=== PATIENT | male | born 1950 | race Caucasian/White ===

== ENCOUNTER → 2016-10-07 | Outpatient (REF) | payer OTHER ==
[2016-10-07 10:30] LABS: MEAN CORPUSCULAR HEMOGLOBIN 29.4 pg (27.0-33.0); MEAN CORPUSCULAR HGB CONC 33.5 g/dl (32.0-36.5); MEAN CORPUSCULAR VOLUME 87.8 fl (80.0-96.0); RED CELL DISTRIBUTION WIDTH 13.7 % (11.5-14.5); WHITE BLOOD COUNT 5.9 K/mm3 (4.0-10.0)
[2016-10-07 11:11] LABS: ALBUMIN 3.5 GM/DL (3.2-5.2); ALKALINE PHOSPHATASE 84 U/L (45-117); ALT/SGPT 13 U/L (12-78); ANION GAP 9 MEQ/L (8-16); AST/SGOT 16 U/L (15-37); BILIRUBIN,TOTAL 0.5 MG/DL (0.2-1.0); BLOOD UREA NITROGEN 18 MG/DL (7-18); CALCIUM LEVEL 8.6 MG/DL (8.8-10.2); CARBON DIOXIDE LEVEL 30 MEQ/L (21-32); CHLORIDE LEVEL 101 MEQ/L (98-107); CHOLESTEROL LEVEL 188 MG/DL (<200); CREATININE FOR GFR 1.16 MG/DL (0.70-1.30); GLOMERULAR FILTRATION RATE > 60.0 (>49); GLUCOSE, FASTING 93 MG/DL (80-110); POTASSIUM SERUM 3.8 MEQ/L (3.5-5.1); SODIUM LEVEL 140 MEQ/L (136-145); TRIGLYCERIDES LEVEL 76 MG/DL (<150)
== END ==
LOC: M SFHCPLAZ 08:52
PROVIDERS: ATTEND Family Medicine
DX: G47.33 Obstructive sleep apnea (adult) (pediatric) (principal); I10 Essential (primary) hypertension; E78.5 Hyperlipidemia, unspecified; Z68.43 Body mass index [BMI] 50.0-59.9, adult

== ENCOUNTER → 2017-04-01 | Outpatient (REF) | payer OTHER | LOC: M SFHCPLAZ 11:54 | PROVIDERS: ATTEND Family Medicine | DX: Z11.59 Encounter for screening for other viral diseases (principal) ==

== ENCOUNTER → 2017-05-14 | Outpatient (CLI) | payer BC, OTHER ==
--- NOTE | 2017-05-14 18:35 | REP ---
HISTORY: Dyspnea. COMPARISON: 04/08/2012 FINDINGS: The superior mediastinal structures are midline. The cardiac silhouette is unremarkable in size, shape and position. The diaphragmatic surfaces of the lungs are regular and the costophrenic angles are clear. The pulmonary banks are clear. The imaged osseous structures are intact. IMPRESSION: There is no acute cardiopulmonary disease. No change from prior exam. Signed by Xiang Almonte DO 05/17/2017 04:41 P
== END ==
LOC: M WUC 13:58
PROVIDERS: ATTEND Nurse Practitioner Adult Health
DX: R06.02 Shortness of breath (principal)

== ENCOUNTER → 2018-02-21 | Outpatient (REF) | payer MEDICARE, OTHER ==
[2018-02-21 15:46] LABS: HEMATOCRIT 38.6 % (42.0-52.0); HEMOGLOBIN 12.7 g/dl (13.5-17.5); MEAN CORPUSCULAR HEMOGLOBIN 29.5 pg (27.0-33.0); MEAN CORPUSCULAR HGB CONC 32.9 g/dl (32.0-36.5); MEAN CORPUSCULAR VOLUME 89.6 fl (80.0-96.0); PLATELET COUNT, AUTOMATED 204 10^3/uL (150-450); RED BLOOD COUNT 4.31 10^6/uL (4.30-6.10); RED CELL DISTRIBUTION WIDTH 13.6 % (11.5-14.5); WHITE BLOOD COUNT 6.5 10^3/uL (4.0-10.0)
[2018-02-21 16:20] LABS: ALBUMIN 3.7 GM/DL (3.2-5.2); ALBUMIN/GLOBULIN RATIO 1.19 (1.00-1.93); ALKALINE PHOSPHATASE 79 U/L (45-117); ALT/SGPT 21 U/L (12-78); ANION GAP 6 MEQ/L (8-16); AST/SGOT 14 U/L (7-37); BILIRUBIN,TOTAL 0.5 MG/DL (0.2-1.0); BLOOD UREA NITROGEN 10 MG/DL (7-18); CALCIUM LEVEL 8.6 MG/DL (8.8-10.2); CARBON DIOXIDE LEVEL 30 MEQ/L (21-32); CHLORIDE LEVEL 106 MEQ/L (98-107); CHOLESTEROL LEVEL 185 MG/DL (<200); CREATININE FOR GFR 0.91 MG/DL (0.70-1.30); GLOMERULAR FILTRATION RATE > 60.0 (>49); GLUCOSE, FASTING 95 MG/DL (70-100); HDL CHOLESTEROL 50 MG/DL (>40); LDL CHOLESTEROL 118.6 MG/DL (<100); NON-HDL-C 135 MG/DL; POTASSIUM SERUM 4.3 MEQ/L (3.5-5.1); SODIUM LEVEL 142 MEQ/L (136-145); TOTAL PROTEIN 6.8 GM/DL (6.4-8.2); TRIGLYCERIDES LEVEL 82 MG/DL (<150)
== END ==
LOC: M SFHCPLAZ 12:06
DX: G47.33 Obstructive sleep apnea (adult) (pediatric) (principal); E78.5 Hyperlipidemia, unspecified; I10 Essential (primary) hypertension; Z68.42 Body mass index [BMI] 45.0-49.9, adult
CPT/HCPCS: 84443

== ENCOUNTER → 2018-07-14 | Outpatient (CLI) | payer MEDICARE, BC, OTHER | LOC: M RAD 07:42 | DX: Z13.6 Encounter for screening for cardiovascular disorders (principal) | CPT/HCPCS: 76775 ==

== ENCOUNTER → 2018-09-13 | Outpatient (CLI) | payer MEDICARE, BC, OTHER ==
--- NOTE | 2018-09-13 12:40 | REP ---
MRI THORACIC SPINE WITHOUT CONTRAST: HISTORY: Back spasms. Comparison study is from January 24, 2008. TECHNIQUE: Sagittal and axial T1- and T2-weighted scans are acquired in the usual fashion with and without fat saturation. Sequences include spin echo, turbo spin-echo, and STIR imaging sequences. MRI FINDINGS: Benign hemangiomas are again noted at the T1, T12, and L1 levels. These are unchanged. Cortical and medullary bone signal intensity are otherwise normal. Vertebral body heights are preserved. Alignment is normal. There is minimal disc space narrowing at T5-6, T7-8, T8-9, and at T10-T11 consistent with mild degenerative disc disease changes at these levels. Thoracic cord is normal in coarse, caliber and signal intensity on T1- and T2-weighted scans. There is no evidence of thoracic cord compression. No neural foraminal lesion is appreciated. There is a tiny right central disc protrusion at T8-9 without cord compression. This is much smaller than it was on the 2007 prior study. No other significant thoracic disc herniation is appreciated. Pedicles and posterior elements are intact. No paraspinal fluid collection is seen. IMPRESSION: Minimal degenerative disc changes in the thoracic spine. Tiny T8-9 thoracic disc herniation much improved from January 24, 2008. No other thoracic disc herniation seen. Electronically Signed by Damian Maldonado MD 09/13/2018 01:25 P
== END ==
LOC: M RAD 10:48
PROVIDERS: ATTEND Obstetrics & Gynecology
DX: M62.830 Muscle spasm of back (principal); D18.09 Hemangioma of other sites; M51.24 Other intervertebral disc displacement, thoracic region

== ENCOUNTER → 2018-12-09 | Outpatient (CLI) | payer MEDICARE, OTHER ==
--- NOTE | 2018-12-26 01:01 | ECWPNPC ---
PATIENT NAME: BRITNEY DIANE : 1950 GENDER: MALE VISIT DATE: 12/09/2018 DISCHARGE DATE: 12/09/18 1555 VISIT LOCKED DATE TIME: PHYSICIAN: CHIN VIVAR MD RESOURCE: CHIN VIVAR MD REASON FOR APPOINTMENT 1. SPASM OF THORACIC BACK HISTORY OF PRESENT ILLNESS PAIN SCREENING: PATIENT HAS A COMPLAINT OF ACUTE OR CHRONIC PAIN :YES 68 YEAR OLD MALE PATIENT WITH A HISTORY OF CHRONIC THORACIC PAIN. THE PATIENT DESCRIBES THE PAIN INTERMITTENT, SHARP, TENDER, SORE, AND SHOOTING WITH A PAIN SCORE OF 6-10/10 DEPENDING ON PHYSICAL ACTIVITY. THE PATIENT SAYS THE PAIN IS MAINLY OVER THE RIGHT THORACIC AREA. THE PATIENT SAYS HE RECEIVED A TRIGGER POINT INJECTION PREVIOUSLY DONE AT ANOTHER FACILITY, WHICH RESULTED IN GOOD PAIN RELIEF. THE PATIENT SAYS THE PAIN HAS SINCE RETURNED. THE PATIENT STATES THE PAIN IS WORSE AT NIGHT AND IS CAUSING SLEEPING DIFFICULTIES FOR HIM. PATIENT DENIES UNEXPLAINABLE WEIGHT LOSS, FEVER, CHILLS, NEW CHANGES ON HIS URINARY OR BOWEL CONTROL. FALL RISK SCREENING: SCREENING :NO FALLS REPORTED IN THE LAST YEAR CURRENT MEDICATIONS TAKING LEXAPRO 20 MG TABLET 1 TABLET ORALLY ONCE A DAY KLEVER, NOTES: SHELBY TAKING CPAP AT BEDTIME _ , NOTES: AT BEDTIME TAKING LAMICTAL 100 MG TABLET 1 TAB(S) ORALLY DAILY TAKING PROAIR HFA 108 (90 BASE) MCG/ACT AEROSOL SOLUTION 2 PUFFS NEEDED INHALATION EVERY 4 HRS TAKING TORSEMIDE 20 MG TABLET 1 TABLET ORALLY ONCE A DAY NEEDED TAKING SPIRONOLACTONE 25 MG TABLET 1 TABLET ORALLY DAILY NEEDED TAKING FLONASE ALLERGY RELIEF 50 MCG/ACT SUSPENSION 1 SPRAY IN EACH NOSTRIL NASALLY ONCE A DAY TAKING ALPRAZOLAM 0.5 MG TABLET 1 TABLET ORALLY THREE TIMES DAILY NEEDED TAKING RABEPRAZOLE SODIUM 20 MG TABLET DELAYED RELEASE 1 TABLET ORALLY ONCE A DAY TAKING KLONOPIN 0.5 MG TABLET 1 TABLET AT BEDTIME NEEDED ORALLY ONCE A DAY NOT-TAKING ACIPHEX 20 MG TABLET DELAYED RELEASE 1 TABLETS ORALLY ONCE A DAY NEEDED NOT-TAKING TIZANIDINE HCL 6 MG CAPSULE 1 CAPSULE NEEDED ORALLY THREE TIMES A DAY NOT-TAKING PERCOCET 5-325 MG TABLET 1 TABLET NEEDED ORALLY EVERY 6 HRS, MDD 4 MEDICATION LIST REVIEWED AND RECONCILED WITH THE PATIENT PAST MEDICAL HISTORY DAYLIN - [place] WITH CPAP - PULM; NOC OX 1/14 SAT >90% 100% OF TIME. COR PULMONALE/RT CHF- ANTECOL CANNY; ECHO CANNY- 06/05/13, GRADE I DD/EF 65%/MOD PULM HTN HTN, GOAL BP 130/80 PER AHA/ACC GUIDELINES ASCVD 10-YEAR RISK IS 13.7% IN 06/2018 DEPRESSION/ANGER ISSUES. PREVIOUSLY SAW DR RYAN. CONTROLLED 3 YEARS ON THIS REGIMEN. GERD HISTORY OF THORACIC/LUMBAR HNP(COMP CLAIM) NO RECENT ISSUES DIVERTICULITIS KIDNEY STONES HISTORY OF HIGH CHOLESTEROL ANXIETY ETOH ABUSE ALLERGIES PENICILLIN (FOR ALLERGIES USE ONLY): DOESN'T REMEMBER - ALLERGY TETANUS-DIPHTHERIA TOXOIDS TD: ARM SWELLED (GAVE A PILL BEFORE AND SHOT WAS OK) - ALLERGY TETRACYCLINE HCL: STATES IMMUNITY SURGICAL HISTORY EYE SURGERY CHILD T&A CHILD APPENDECTOMY 2002 LEFT KNEE TORN MENISCUS 06/2009 EGD/COLO DR GONSALVES. 2009 ALL UPPER TEETH EXTRACTED 2014 EDG/COLONOSCOPY - [facility], RECOMMENDED REPEAT OF EGD IN 3 YEARS AND COLONOSCOPY IN 5 YEARS 08/2016 FAMILY HISTORY FATHER: 57 YRS, OF LUNG CA, DIAGNOSED WITH CANCER MOTHER: 91 YRS, COMPLICATIONS OF ALZHEIMER, OTHER SIBLINGS: BROTHER (1) - IS S/P SPLENECTOMY AND IS NOT HAVING PROBLEMS AFTER THIS. HE HAS ALSO HAD A PARTIAL COLECTOMY AFTER DIVERTICULAR FLARES. DAUGHTER(S): DAUGHTERS (3) - H/O ALLERGIES, 1 WITH MIGRAINE HEADACHES PATERNAL GRAND MOTHER: LUNG CANCER MATERNAL GRAND MOTHER: ESOPHAGEAL CANCER PATERNAL AUNT: BRAIN CANCER, STERNUM CANCER 1 BROTHER(S) . 3DAUGHTER(S) - HEALTHY. FATHER - LUNG CANCERMOTHER - ALZHEIMER'S; DUE TO PNEUMONIABROTHER LIVES IN [facility], H\/O SPLENECTOMY\/COLOSTOMY. SOCIAL HISTORY GENERAL: TOBACCO USE ARE YOU A:FORMER SMOKER HOW LONG HAS IT BEEN SINCE YOU LAST SMOKED?> 10 YEARS QUIT IN 1987; HAD ACRUED A 30 PACK YEAR HX BY THEN HIV / HEP-C SCREENING HIV TEST OFFERED TO PATIENT:YES TEST ACCEPTED:NO HEP-C TEST OFFERED TO PATIENT:YES REASON:PATIENT DECLINED TEST ACCEPTED:NO REASON:PATIENT DECLINED HOUSING: LIVES ALONE. EDUCATION 1 SEMESTER COLLEGE. LANGUAGE LANGUAGES SPOKEN:[place] DOMESTIC VIOLENCE NONE. BMI CARE GOAL FOLLOW-UP ABOVE NORMAL BMI FOLLOW-UPDIETARY MANAGEMENT EDUCATION, GUIDANCE, AND COUNSELING RECREATIONAL DRUG USE MARIJUANA EARLY 20'S ONLY, NONE CURRENTLY. EXERCISE: WALKS, DAILY, MOST DAYS. LEARNING BARRIERS / SPECIAL NEEDS CHANGE FROM LAST VISIT?NO BARRIERS TO LEARNING?NO HEARING IMPAIRED?NO VISION IMPAIRED?YES :CORRECTIVE LENSES BIFOCALS COGNITIVELY IMPAIRED?NO READINESS TO LEARN?YES LEARNING PREFERENCES?NO LEARNING CAPABILITIES PRESENT?YES EMOTIONAL BARRIERS?NO SPECIAL DEVICES?NO CONTINUOUS MINING OPERATOR NEEDED?NO PAIN CLINIC PFS, CLERGY, PUBLIC HEALTH REFERRALS HAS THE PATIENT BEEN EDUCATED REGARDING HIS/HER PLAN OF CARE?YES HAS THE PATIENT BEEN EDUCATED REGARDING PAIN, THE RISK FOR PAIN, THE IMPORTANCE OF EFFECTIVE PAIN MANAGEMENT, AND THE PAIN ASSESSMENT PROCESS?YES LATEX QUESTIONNAIRE LATEX ALLERGY : HAVE YOU EVER DEVELOPED ANY TYPE OF REACTION AFTER HANDLING LATEX PRODUCTS SUCH RUBBER GLOVES, CONDOMS, DIAPHRAGMS, BALLOONS, SOCKS, OR UNDERWEAR?NO LATEX ALLERGY : HAVE YOU EVER DEVELOPED ANY TYPE OF REACTION DURING OR AFTER DENTAL APPOINTMENT, VAGINAL/RECTAL EXAMINATION, SURGICAL PROCEDURE, OR ANY OTHER EXPOSURE?NO LATEX RISK : HAVE YOU EVER HAD ANY DIFFICULTY BREATHING OR HIVES AFTER EATING OR HANDLING ANY FRUITS, OR VEGETABLES; SUCH KIWI, BANANAS, STONE FRUITS, OR CHESTNUTSNO LATEX RISK : DO YOU HAVE A PREVIOUS PERSONAL HISTORY OF MORE THAN NINE SURGERIES, SPINA BIFIDA, OR REPEATED CATHERTIZATIONS? NO LATEX RISK : ARE YOU FREQUENTLY EXPOSED TO LATEX PRODUCTS IN YOUR OCCUPATION?NO DATE ASKED : 12/09/2018 CAFFEINE >5/DAY. ADVANCE DIRECTIVE ADVANCE DIRECTIVE DISCUSSED WITH PATIENT:YES HCP - ALETHA (DAUGHTER) JEW NO MU-ISM BELIEFS THAT WOULD IMPACT HEALTH CARE. MARITAL STATUS: . ALCOHOL SCREENING DID YOU HAVE A DRINK CONTAINING ALCOHOL IN THE PAST YEAR?YES HOW OFTEN DID YOU HAVE SIX OR MORE DRINKS ON ONE OCCASION IN THE PAST YEAR?MONTHLY (2 POINTS) HOW MANY DRINKS DID YOU HAVE ON A TYPICAL DAY WHEN YOU WERE DRINKING IN THE PAST YEAR?5 OR 6 (2 POINTS) HOW OFTEN DID YOU HAVE A DRINK CONTAINING ALCOHOL IN THE PAST YEAR?TWO TO THREE TIMES PER WEEK (3 POINTS) POINTS7 INTERPRETATIONPOSITIVE OCCUPATION: [employer]; RETIRED FROM [employer]/ [employer]. SEXUAL HX HAD SEX IN THE LAST 12 MONTHS (VAGINAL, ORAL, OR ANAL)?NO HAVE YOU EVER HAD AN STD?YES HERPES?YES WANTS TO DONATE BODY TO SCIENCE. HE IS AN ALCOHOLIC IN [place], ATTENDING AA MEETINGS.REVIEWED WITH PATIENT 12/09/18 1410 JS. HOSPITALIZATION/MAJOR DIAGNOSTIC PROCEDURE SURGERY RELATED REVIEW OF SYSTEMS REVIEWED BY: PROVIDER: CHIN VIVAR MD . CONSTITUTIONAL: ANY CHANGE IN YOUR MEDICAL CONDITION? YES, STATES INTENSE PAIN, SPASM, AND BURNING IN 3 SPECIFIC SPOTS - UNDER RIGHT RIB CAGE, RIGHT SIDE, AND RIGHT THORACIC BACK . CHILLS NO . FEVER NO . INFECTION: DO YOU HAVE NEW INFECTIONS? NO . DO YOU HAVE HISTORY OF MRSA? NO . MUSCULOSKELETAL: ANY NEW PATTERNS OF PAIN OR NUMBNESS? NO . SYTEMIC LUPUS NO . GASTROENTEROLOGY: ANY NEW CHANGE IN BOWEL CONTROL? NO . BARRETTS ESOPHAGUS NO . CIRRHOSIS NO . HEPATITIS NO . LIVER FAILURE NO . ACID REFLUX YES . UNEXPLAINED WEIGHT LOSS NO . GENITOURINARY: ANY NEW CHANGE IN BLADDER CONTROL? NO . IS THERE A CHANCE YOU COULD BE ? NO . HEMATOLOGY/LYMPH: DO YOU TAKE ANY BLOOD THINNERS? (FOR EXAMPLE- COUMADIN, PLAVIX, AGGRENOX, PLATEL, PRADAXA, OR XARELTO) NO . WHEN WAS YOUR LAST DOSE? DATE: TIME: . LOW PLATELET COUNT NO . SICKLE CELL DISEASE NO . VON WILLIEBRANDS NO . FACTOR V LEIDEN NO . THALLASEMIA NO . ANEMIA NO . EASY BRUISING NO . NEUROLOGY: HAVE YOU FALLEN IN THE PAST 12 MONTHS? NO . ANY NEW EXTREMITY NUMBNESS OR WEAKNESS? NO . HEAD INJURY NO . DEMENTIA NO . CEREBRAL PALSY NO . MULTIPLE SCLEROSIS NO . DIZZINESS NO . HEADACHE NO . STROKES NO . VERTIGO NO . CARDIOLOGY: DO YOU HAVE A PACEMAKER OR DEFIBRILLATOR? NO . ANGINA NO . HEART ATTACK NO . HEART SURGERY NO . CONGESTIVE HEART FAILURE/FLUID OVERLOAD YES, PATIENT STATES HE DOESN'T AGREE WITH THAT DIAGNOSIS . CHEST PAIN OCCASIONAL, STATES HE HASN'T HAD THEM IN A LONG TIME. FOLLOWS WITH DR. CORTES, HAD PVC'S AT ONE TIME . HIGH BLOOD PRESSURE NO . IRREGULAR HEART BEAT NO . RESPIRATORY: HAVE YOU BEEN SICK IN THE PAST WEEK? NO . FEVER NO . FLU LIKE SYMPTOMS? NO . CPAP YES . BYPAP NO . ASTHMA NO . EMPHYSEMA NO . CHRONIC LUNG DISEASES NO . SHORTNESS OF BREATH ON EXERTION NO . COUGH NO . SNORING YES, IF NOT WEARING CPAP . INTEGUMENTARY: DO YOU HAVE ANY RASHES OR OPEN SORES? NO . ALLERGIC/IMMUNO: ARE YOU ALLERGIC TO IV DYE? NO . ANY NEW ALLERGIES? NO . PSYCHIATRIC: DO YOU HAVE THOUGHTS OF HURTING YOURSELF OR SOMEONE ELSE? NO . ARE YOU ABUSED, NEGLECTED, OR IN AN UNSAFE ENVIRONMENT? NO . ENDOCRINOLOGY: ARE YOU DIABETIC? NO . THYROID DISORDER NO . OTHER: DO YOU NEED ANY PRESCRIPTIONS? NO . IF YES, PLEASE LIST: ____ . ANY NEW PROBLEMS WITH YOUR MEDICATIONS? NO . WHEN DID YOU LAST EAT? ____ . WHEN DID YOU LAST DRINK? ____ . WHAT DID YOU LAST DRINK? ____ . NAME OF PERSON DRIVING YOU HOME? ____ . DO YOU HAVE ANY OTHER QUESTIONS OR CONCERNS NO . VITAL SIGNS WT 349. LBS, HT 69 IN, BMI 51.53 INDEX, BP 193/86 MM HG, REPEAT BP 142/80 MANUAL, HR 85 /MIN, RR 18 /MIN, TEMP 98.0 F, OXYGEN SAT % 94%, SAFE IN ENV? (Y/N) YES, NA INITIALS CA 13:36, REVIEWED BY: JS. EXAMINATION GENERAL EXAMINATION: PATIENT IS ALERT O X 3 AND COOPERATIVE. LUNGS CLEAR, TO AUSCULTATION. HEART: NO MURMURS OR GALLOPS; FACIAL CRANIAL NERVES ARE GROSSLY NORMAL. GOOD SYMMETRY OF FACIAL MUSCLE MOVEMENT. NORMAL VISUAL VÁZQUEZ. PRESENCE OF BANDS OF TISSUE AND TRIGGER POINTS WITH RESTRICTION OF MOVEMENT OF THE BACK. MRI OF THE THORACIC SPINE DONE ON 09/13/2018 SHOWS BULGING DISCS AND MINIMAL DISC NARROWING AT MULTIPLE LEVELS. 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 DIANE' PAIN MANAGEMENT CASE. DUE TO THE TRIGGER POINTS, BANDS OF TISSUE, AND RESTRICTION OF MOVEMENT, I WOULD LIKE TO MOVE FORWARD WITH A TRIGGER POINT INJECTION AT THIS TIME. WE DISCUSSED THE BENEFITS, RISKS, AND ALTERNATIVES OF THE INJECTION AND THE PATIENT WOULD LIKE TO PROCEED. THE PATIENT WILL CONSIDER A NEW MRI WITH MARKERS OF THE PAIN LOCATIONS. I BELIEVE THE PAIN IS MUSCULOSKELETAL THERE SEEMS TO BE NO OTHER INDICATORS FOR WHY THE PAIN IS MANIFESTING. I PRESCRIBED TIZANIDINE FOR THE PATIENT TO TAKE AT NIGHT TO HELP WITH SLEEPING. THE PATIENT WILL FOLLOW UP IN 3 WEEKS AFTER THE INJECTION. INSTRUCTIONS WERE GIVEN, QUESTIONS WERE ANSWERED, PATIENT REPORTS UNDERSTANDING AND AGREES WITH THE PLAN. ITREV, DOCUMENTED THE ABOVE INFORMATION ACTING A SCRIBE FOR DR. VIVAR. I HAVE REVIEWED THE ABOVE DOCUMENT, WRITTEN BY TREV GARSIA SCRIBTyree AND I VERIFY THAT IT IS ACCURATE. DEAR DR. ARTHUR PURDY MD: THANK YOU FOR YOUR KIND REFERRAL OF BRITNEY DIANE. IF YOU WANT TO DISCUSS HIS CASE WITH ME PLEASE CALL ME AT THE PAIN CENTER AT [phone]. SINCERELY, CHIN VIVAR MD PAIN MEDICINE . OTHERS NOTES: TRIGGER POINT INJECTION: YOUR EXPERIENCE MATERIAL WAS PRINTED,TRIGGER POINT INJECTION MATERIAL WAS PRINTED. PROCEDURE CODES FA211 ESTABILISHED PATIENT [facility] FACILITY CHARGE G8427 CURRENT MEDS W/DOSAGES DOCUMENTED G8730 PAIN ASSESS POS TOOL F/U PLAN DOC DISPOSITION & COMMUNICATION FOLLOW UP 3 WEEKS ELECTRONICALLY SIGNED BY CHIN VIVAR MD, MD ON 12/25/2018 AT 05:36 PM EDT DISCLAIMER : THIS IS A VISIT SUMMARY EXTRACTED FROM THE [employer] CHART. IT IS NOT A COPY OF THE [employer] PROGRESS NOTE. CHEYANNE
== END ==
LOC: M PAIN 13:00
PROVIDERS: ATTEND Anesthesiology
DX: M79.18 Myalgia, other site (principal); G89.29 Other chronic pain; M51.14 Intervertebral disc disorders with radiculopathy, thoracic region; I10 Essential (primary) hypertension; G47.33 Obstructive sleep apnea (adult) (pediatric); E66.01 Morbid (severe) obesity due to excess calories; Z68.43 Body mass index [BMI] 50.0-59.9, adult; Z79.899 Other long term (current) drug therapy; Z88.0 Allergy status to penicillin; Z88.1 Allergy status to other antibiotic agents; Z88.7 Allergy status to serum and vaccine; Z87.891 Personal history of nicotine dependence; Z86.59 Personal history of other mental and behavioral disorders

== ENCOUNTER → 2019-01-03 | Outpatient (CLI) | payer MEDICARE, OTHER ==
[~2019-01-03] MED LIST: BUPIVACAINE HCL 0.25% 10 ML VIAL As Ordered ONE; BUPIVACAINE HCL 0.25% 30 ML VIAL As Ordered ONE; TRIAMCINOLONE ACETONIDE SUSP 40 MG/ML VIAL (J3301) As Ordered ONE
--- NOTE | 2019-01-13 03:30 | ECWPNPC ---
PATIENT NAME: BRITNEY DIANE : 1950 GENDER: MALE VISIT DATE: 01/03/2019 DISCHARGE DATE: 01/03/19 1559 VISIT LOCKED DATE TIME: PHYSICIAN: CHIN VIVAR MD RESOURCE: CHIN VIVAR MD REASON FOR APPOINTMENT 1. TPI HISTORY OF PRESENT ILLNESS HISTORY OF PRESENT ILLNESS: PAIN THE PATIENT DESCRIBES THE PAIN... FALL RISK SCREENING: SCREENING :NO FALLS REPORTED IN THE LAST YEAR CURRENT MEDICATIONS TAKING LEXAPRO 20 MG TABLET 1 TABLET ORALLY ONCE A DAY KLEVER, NOTES: 01/03/19@0900 TAKING CPAP AT BEDTIME _ , NOTES: AT BEDTIME TAKING LAMICTAL 100 MG TABLET 1 TAB(S) ORALLY DAILY, NOTES: 01/03/19@0900 TAKING PROAIR HFA 108 (90 BASE) MCG/ACT AEROSOL SOLUTION 2 PUFFS NEEDED INHALATION EVERY 4 HRS, NOTES: NONE RECENTLY TAKING TORSEMIDE 20 MG TABLET 1 TABLET ORALLY ONCE A DAY NEEDED, NOTES: NONE RECENTLY TAKING SPIRONOLACTONE 25 MG TABLET 1 TABLET ORALLY DAILY NEEDED, NOTES: NONE RECENTLY TAKING ALPRAZOLAM 0.5 MG TABLET 1 TABLET ORALLY THREE TIMES DAILY NEEDED, NOTES: 1 WEEK AGO TAKING RABEPRAZOLE SODIUM 20 MG TABLET DELAYED RELEASE 1 TABLET ORALLY ONCE A DAY, NOTES: 2-3 DAYS AGO NOT-TAKING FLONASE ALLERGY RELIEF 50 MCG/ACT SUSPENSION 1 SPRAY IN EACH NOSTRIL NASALLY ONCE A DAY, NOTES: NONE RECENTLY DISCONTINUED KLONOPIN 0.5 MG TABLET 1 TABLET AT BEDTIME NEEDED ORALLY ONCE A DAY DISCONTINUED ACIPHEX 20 MG TABLET DELAYED RELEASE 1 TABLETS ORALLY ONCE A DAY NEEDED DISCONTINUED TIZANIDINE HCL 6 MG CAPSULE 1 CAPSULE NEEDED ORALLY THREE TIMES A DAY DISCONTINUED PERCOCET 5-325 MG TABLET 1 TABLET NEEDED ORALLY EVERY 6 HRS, MDD 4 MEDICATION LIST REVIEWED AND RECONCILED WITH THE PATIENT PAST MEDICAL HISTORY DAYLIN - [place] WITH CPAP - PULM; NOC OX 08/29 SAT >90% 100% OF TIME. COR PULMONALE/RT CHF- ANTECOL JENNIFER; ECHO JENNIFER- 06/05/13, GRADE I DD/EF 65%/MOD PULM HTN HTN, GOAL BP 130/80 PER AHA/ACC GUIDELINES ASCVD 10-YEAR RISK IS 13.7% IN 06/2018 DEPRESSION/ANGER ISSUES. PREVIOUSLY SAW DR RYAN. CONTROLLED 3 YEARS ON THIS REGIMEN. GERD HISTORY OF THORACIC/LUMBAR HNP(COMP CLAIM) NO RECENT ISSUES DIVERTICULITIS KIDNEY STONES HISTORY OF HIGH CHOLESTEROL ANXIETY ETOH ABUSE ALLERGIES PENICILLIN (FOR ALLERGIES USE ONLY): DOESN'T REMEMBER - ALLERGY TETANUS-DIPHTHERIA TOXOIDS TD: ARM SWELLED (GAVE A PILL BEFORE AND SHOT WAS OK) - ALLERGY TETRACYCLINE HCL: STATES IMMUNITY SURGICAL HISTORY EYE SURGERY CHILD T&A CHILD APPENDECTOMY 2002 LEFT KNEE TORN MENISCUS 06/2009 EGD/COLO DR GONSALVES. 2009 ALL UPPER TEETH EXTRACTED 2014 EDG/COLONOSCOPY - [facility], RECOMMENDED REPEAT OF EGD IN 3 YEARS AND COLONOSCOPY IN 5 YEARS 08/2016 FAMILY HISTORY FATHER: 57 YRS, OF LUNG CA, DIAGNOSED WITH CANCER MOTHER: 91 YRS, COMPLICATIONS OF ALZHEIMER, OTHER SIBLINGS: BROTHER (1) - IS S/P SPLENECTOMY AND IS NOT HAVING PROBLEMS AFTER THIS. HE HAS ALSO HAD A PARTIAL COLECTOMY AFTER DIVERTICULAR FLARES. DAUGHTER(S): DAUGHTERS (3) - H/O ALLERGIES, 1 WITH MIGRAINE HEADACHES PATERNAL GRAND MOTHER: LUNG CANCER MATERNAL GRAND MOTHER: ESOPHAGEAL CANCER PATERNAL AUNT: BRAIN CANCER, STERNUM CANCER 1 BROTHER(S) . [facility]. FATHER - LUNG CANCERMOTHER - ALZHEIMER'S; DUE TO PNEUMONIABROTHER LIVES IN [facility], H\/O SPLENECTOMY\/COLOSTOMY. SOCIAL HISTORY GENERAL: TOBACCO USE ARE YOU A:FORMER SMOKER HOW LONG HAS IT BEEN SINCE YOU LAST SMOKED?> 10 YEARS QUIT IN 1987; HAD ACRUED A 30 PACK YEAR HX BY THEN HIV / HEP-C SCREENING HIV TEST OFFERED TO PATIENT:YES TEST ACCEPTED:NO HEP-C TEST OFFERED TO PATIENT:YES REASON:PATIENT DECLINED TEST ACCEPTED:NO REASON:PATIENT DECLINED HOUSING: LIVES ALONE. EDUCATION 1 SEMESTER COLLEGE. LANGUAGE LANGUAGES SPOKEN:MEXICAN DOMESTIC VIOLENCE NONE. BMI CARE GOAL FOLLOW-UP ABOVE NORMAL BMI FOLLOW-UPDIETARY MANAGEMENT EDUCATION, GUIDANCE, AND COUNSELING RECREATIONAL DRUG USE MARIJUANA EARLY 20'S ONLY, NONE CURRENTLY. EXERCISE: WALKS, DAILY, MOST DAYS. LEARNING BARRIERS / SPECIAL NEEDS CHANGE FROM LAST VISIT?NO BARRIERS TO LEARNING?NO HEARING IMPAIRED?NO VISION IMPAIRED?YES COGNITIVELY IMPAIRED?NO :CORRECTIVE LENSES BIFOCALS READINESS TO LEARN?YES LEARNING PREFERENCES?NO LEARNING CAPABILITIES PRESENT?YES EMOTIONAL BARRIERS?NO SPECIAL DEVICES?NO STRADDLE BUG DRIVER NEEDED?NO PAIN CLINIC PFS, CLERGY, PUBLIC HEALTH REFERRALS HAS THE PATIENT BEEN EDUCATED REGARDING HIS/HER PLAN OF CARE?YES HAS THE PATIENT BEEN EDUCATED REGARDING PAIN, THE RISK FOR PAIN, THE IMPORTANCE OF EFFECTIVE PAIN MANAGEMENT, AND THE PAIN ASSESSMENT PROCESS?YES LATEX QUESTIONNAIRE LATEX ALLERGY : HAVE YOU EVER DEVELOPED ANY TYPE OF REACTION AFTER HANDLING LATEX PRODUCTS SUCH RUBBER GLOVES, CONDOMS, DIAPHRAGMS, BALLOONS, SOCKS, OR UNDERWEAR?NO LATEX ALLERGY : HAVE YOU EVER DEVELOPED ANY TYPE OF REACTION DURING OR AFTER DENTAL APPOINTMENT, VAGINAL/RECTAL EXAMINATION, SURGICAL PROCEDURE, OR ANY OTHER EXPOSURE?NO LATEX RISK : HAVE YOU EVER HAD ANY DIFFICULTY BREATHING OR HIVES AFTER EATING OR HANDLING ANY FRUITS, OR VEGETABLES; SUCH KIWI, BANANAS, STONE FRUITS, OR CHESTNUTSNO LATEX RISK : DO YOU HAVE A PREVIOUS PERSONAL HISTORY OF MORE THAN NINE SURGERIES, SPINA BIFIDA, OR REPEATED CATHERTIZATIONS? NO LATEX RISK : ARE YOU FREQUENTLY EXPOSED TO LATEX PRODUCTS IN YOUR OCCUPATION?NO DATE ASKED : 01/03/2019 CAFFEINE >5/DAY. ADVANCE DIRECTIVE ADVANCE DIRECTIVE DISCUSSED WITH PATIENT:YES HCP - ALETHA (DAUGHTER) ORTHODOX NO ANGLICAN BELIEFS THAT WOULD IMPACT HEALTH CARE. MARITAL STATUS: . ALCOHOL SCREENING DID YOU HAVE A DRINK CONTAINING ALCOHOL IN THE PAST YEAR?YES HOW OFTEN DID YOU HAVE SIX OR MORE DRINKS ON ONE OCCASION IN THE PAST YEAR?MONTHLY (2 POINTS) HOW MANY DRINKS DID YOU HAVE ON A TYPICAL DAY WHEN YOU WERE DRINKING IN THE PAST YEAR?5 OR 6 (2 POINTS) HOW OFTEN DID YOU HAVE A DRINK CONTAINING ALCOHOL IN THE PAST YEAR?TWO TO THREE TIMES PER WEEK (3 POINTS) POINTS7 INTERPRETATIONPOSITIVE OCCUPATION: [employer]; RETIRED FROM [employer]/ [employer]. SEXUAL HX HAD SEX IN THE LAST 12 MONTHS (VAGINAL, ORAL, OR ANAL)?NO HAVE YOU EVER HAD AN STD?YES HERPES?YES WANTS TO DONATE BODY TO SCIENCE. HE IS AN ALCOHOLIC IN [place], ATTENDING AA MEETINGS.REVIEWED WITH PATIENT 12/09/18 1410 JS. HOSPITALIZATION/MAJOR DIAGNOSTIC PROCEDURE SURGERY RELATED REVIEW OF SYSTEMS REVIEWED BY: PROVIDER: . CONSTITUTIONAL: ANY CHANGE IN YOUR MEDICAL CONDITION? NO . CHILLS NO . FEVER NO . INFECTION: DO YOU HAVE NEW INFECTIONS? NO . DO YOU HAVE HISTORY OF MRSA? NO . MUSCULOSKELETAL: ANY NEW PATTERNS OF PAIN OR NUMBNESS? NO . GASTROENTEROLOGY: ANY NEW CHANGE IN BOWEL CONTROL? NO . GENITOURINARY: ANY NEW CHANGE IN BLADDER CONTROL? NO . IS THERE A CHANCE YOU COULD BE ? NO . HEMATOLOGY/LYMPH: DO YOU TAKE ANY BLOOD THINNERS? (FOR EXAMPLE- COUMADIN, PLAVIX, AGGRENOX, PLATEL, PRADAXA, OR XARELTO) NO . WHEN WAS YOUR LAST DOSE? DATE: TIME: . NEUROLOGY: HAVE YOU FALLEN IN THE PAST 12 MONTHS? NO . ANY NEW EXTREMITY NUMBNESS OR WEAKNESS? NO . CARDIOLOGY: DO YOU HAVE A PACEMAKER OR DEFIBRILLATOR? NO . RESPIRATORY: HAVE YOU BEEN SICK IN THE PAST WEEK? NO . FEVER NO . FLU LIKE SYMPTOMS? NO . COUGH NO . INTEGUMENTARY: DO YOU HAVE ANY RASHES OR OPEN SORES? NO . ALLERGIC/IMMUNO: ARE YOU ALLERGIC TO IV DYE? NO . ANY NEW ALLERGIES? NO . PSYCHIATRIC: DO YOU HAVE THOUGHTS OF HURTING YOURSELF OR SOMEONE ELSE? NO . ARE YOU ABUSED, NEGLECTED, OR IN AN UNSAFE ENVIRONMENT? NO . ENDOCRINOLOGY: ARE YOU DIABETIC? NO . OTHER: DO YOU NEED ANY PRESCRIPTIONS? NO . IF YES, PLEASE LIST: ____ . ANY NEW PROBLEMS WITH YOUR MEDICATIONS? NO . WHEN DID YOU LAST EAT? ____01/03/19 . WHEN DID YOU LAST DRINK? ____12/25/18 . WHAT DID YOU LAST DRINK? ____WATER . NAME OF PERSON DRIVING YOU HOME? ____SHANTELLE . DO YOU HAVE ANY OTHER QUESTIONS OR CONCERNS NO . VITAL SIGNS WT 350.6 LBS, HT 69 IN, BMI 51.77 INDEX, BP 169/83 MM HG, HR 76 /MIN, RR 18 /MIN, TEMP 97.4 F, OXYGEN SAT % 97%, SAFE IN ENV? (Y/N) YES, NA INITIALS MT 12:43, REVIEWED BY: VD. ASSESSMENTS MYALGIA, OTHER SITE - M79.18 (PRIMARY) PROCEDURES PN TRIGGER POINT INJECTION WITH STEROIDS PRE PROCEDURE DIAGNOSIS 1. MYALGIA 2. PAIN AT RIGHT THORACIC AREA POST PROCEDURE DIAGNOSIS 1. MYALGIA 2. PAIN AT RIGHT THORACIC AREA PROCEDURE TRIGGER POINT INJECTION AT RIGHT THORACIC AREA SURGEON DR. CHIN VIVAR DIRECTOR SEARCH NONE ANESTHESIA LOCAL PRE PROCEDURE NOTE THE PATIENT HAS A HISTORY OF CHRONIC PAIN AT THE RIGHT THORACIC AREA. I EVALUATE THE PATIENT AND REVIEWED THE CHART. THERE IS EVIDENCE OF BANDS OF TISSUE WITH RESTRICTION OF MOVEMENT AND PRESENCE OF TRIGGER POINT AT THE AFFECTED AREA. I WENT OVER THE RISKS, ALTERNATIVES, AND BENEFITS ASSOCIATED WITH THIS PROCEDURE. THE PATIENT WOULD LIKE TO PROCEED AND GIVE CONSENT TO PERFORMED THE PROCEDURE. THE PATIENT DENIES UNEXPLAINABLE WEIGHT LOSS, FEVER, CHILLS, OR NEW CHANGES IN URINARY OR BOWEL CONTROL DESCRIPTION OF PROCEDURE THE PATIENT WAS BROUGHT TO THE PROCEDURE ROOM AND PLACED IN THE SITTING POSITION. THE AREA WAS CLEANED WITH ALCOHOL. THE PROCEDURE WAS DONE USING ASEPTIC STERILE TECHNIQUE. I CHECKED LATERALITY AND THE LEVEL WHERE THE PROCEDURE WAS GOING TO BE PERFORMED WITH THE PATIENT AND THE SUPPORTING STAFF AT THE MOMENT OF THE TIME OUT IN THE PROCEDURE ROOM. USING A 25-GAUGE NEEDLE, TRIGGER POINTS WERE INJECTED AT THE RIGHT THORACIC AREA WITH A TOTAL OF 40 ML OF BUPIVACAINE 0.25% AND KENALOG 40 MG. THERE WAS NO EVIDENCE OF BLOOD, PARESTHESIA OR CEREBROSPINAL FLUID DURING THE PROCEDURE. THE PATIENT WAS SENT TO THE RECOVERY ROOM. THE PATIENT WAS MOVING THE EXTREMITIES AND DOING WELL. THERE WAS NO COMPLICATION DURING THE PROCEDURE POST PROCEDURE NOTE THE PATIENT WILL BE SEEN IN A FOLLOW UP IN THE NEXT FEW WEEKS. INSTRUCTIONS WERE GIVEN, QUESTIONS WERE ANSWERED, AND THE PATIENT EXPRESSED UNDERSTANDING AND AGREES WITH THE PLAN. I, SHER CRAIG, DOCUMENTED THE ABOVE INFORMATION ACTING A SCRIBE FOR DR. VIVAR. I HAVE REVIEWED THE ABOVE DOCUMENT, WRITTEN BY SHER LEE AND I VERIFY THAT IT IS ACCURATE. PROCEDURE CODES 52259 INJ TRIGGER POINT /2 [facility] DISPOSITION & COMMUNICATION FOLLOW UP 3 WEEKS ELECTRONICALLY SIGNED BY CHIN VIVAR MD, MD ON 01/11/2019 AT 04:31 PM EDT DISCLAIMER : THIS IS A VISIT SUMMARY EXTRACTED FROM THE [employer] CHART. IT IS NOT A COPY OF THE [employer] PROGRESS NOTE. MTDD
== END ==
LOC: M PAIN 12:45
PROVIDERS: ATTEND Anesthesiology
DX: M79.18 Myalgia, other site (principal); M54.6 Pain in thoracic spine; I10 Essential (primary) hypertension; G47.33 Obstructive sleep apnea (adult) (pediatric); E66.01 Morbid (severe) obesity due to excess calories; Z68.43 Body mass index [BMI] 50.0-59.9, adult; Z79.899 Other long term (current) drug therapy; Z88.0 Allergy status to penicillin; Z88.1 Allergy status to other antibiotic agents; Z88.7 Allergy status to serum and vaccine; Z86.59 Personal history of other mental and behavioral disorders; Z87.891 Personal history of nicotine dependence
CPT/HCPCS: 20552; J3301

== ENCOUNTER → 2019-01-27 | Outpatient (CLI) | payer MEDICARE, OTHER ==
--- NOTE | 2019-02-04 23:30 | ECWPNPC ---
PATIENT NAME: BRITNEY DIANE : 1950 GENDER: MALE VISIT DATE: 01/27/2019 DISCHARGE DATE: 01/27/19 1537 VISIT LOCKED DATE TIME: PHYSICIAN: CHIN VIVAR MD RESOURCE: CHIN VIVAR MD REASON FOR APPOINTMENT 1. POST TPI HISTORY OF PRESENT ILLNESS HISTORY OF PRESENT ILLNESS: PAIN THE PATIENT DESCRIBES THE PAIN... 68 YEAR OLD MALE PATIENT WITH A HISTORY OF CHRONIC RIGHT CHEST WALL PAIN. THE PATIENT DESCRIBES THE PAIN STABBING, SHOOTING, TENDER, SHARP, INTERMITTENT, AND NIGHTLY WITH A PAIN SCORE OF 4-10/10 DEPENDING ON PHYSICAL ACTIVITY. THE PATIENT STATES HE HAS BEEN SUFFERING FROM THIS PAIN FOR OVER 6 MONTHS THAT FIRST OCCURRED WHILE HE WAS SITTING IN HIS CHAIR WHEN SUDDENLY MUSCLE SPASMS OCCURRED ACROSS HIS BACK VERY QUICKLY AND THEN QUIT. THE PATIENT SAID SINCE THAT OCCURRENCE, HE HAS ONLY HAD ONE MUSCLE SPASM SINCE, BUT THE PAIN PERSISTS. THE PATIENT SAYS THE PAIN IS AT ITS WORST WHEN HE FIRST LAYS DOWN TO SLEEP AND HE OFTEN WAKES UP FROM SLEEP DUE TO THE PAIN. THE PATIENT SAYS OVER THE LAST FEW WEEKS THE PAIN HAS BEEN INCREASING. THE SAYS THE PAIN IS AFFECTING HIS ABILITY TO PERFORM HIS DAILY ACTIVITIES SUCH COOKING, WORKING AROUND THE HOUSE, MOVING, AND BEING ACTIVE. THE PATIENT HAD A RIGHT THORACIC TRIGGER POINT INJECTION DONE ON 01/03/2019 WHICH HE SAYS HELPED FOR A FEW DAYS. THE PATIENT SAYS HE HAS TRIED LIDOCAINE PATCHES IN THE PAST THAT DID NOT OFFER ANY RELIEF FROM HIS PAIN. PATIENT DENIES UNEXPLAINABLE WEIGHT LOSS, FEVER, CHILLS, NEW CHANGES ON HIS URINARY OR BOWEL CONTROL. FALL RISK SCREENING: SCREENING :NO FALLS REPORTED IN THE LAST YEAR CURRENT MEDICATIONS TAKING LEXAPRO 20 MG TABLET 1 TABLET ORALLY ONCE A DAY KLEVER TAKING CPAP AT BEDTIME _ TAKING LAMICTAL 100 MG TABLET 1 TAB(S) ORALLY DAILY TAKING PROAIR HFA 108 (90 BASE) MCG/ACT AEROSOL SOLUTION 2 PUFFS NEEDED INHALATION EVERY 4 HRS TAKING TORSEMIDE 20 MG TABLET 1 TABLET ORALLY ONCE A DAY NEEDED TAKING SPIRONOLACTONE 25 MG TABLET 1 TABLET ORALLY DAILY NEEDED TAKING ALPRAZOLAM 0.5 MG TABLET 1 TABLET ORALLY THREE TIMES DAILY NEEDED TAKING RABEPRAZOLE SODIUM 20 MG TABLET DELAYED RELEASE 1 TABLET ORALLY ONCE A DAY NOT-TAKING FLONASE ALLERGY RELIEF 50 MCG/ACT SUSPENSION 1 SPRAY IN EACH NOSTRIL NASALLY ONCE A DAY, NOTES: NONE RECENTLY MEDICATION LIST REVIEWED AND RECONCILED WITH THE PATIENT PAST MEDICAL HISTORY DAYLIN - TX WITH CPAP - PULM; NOC OX 08/29 SAT >90% 100% OF TIME. COR PULMONALE/RT CHF- ANTECOL CANNY; ECHO CANNY- 06/05/13, GRADE I DD/EF 65%/MOD PULM HTN HTN, GOAL BP 130/80 PER AHA/ACC GUIDELINES ASCVD 10-YEAR RISK IS 13.7% IN 06/2018 DEPRESSION/ANGER ISSUES. PREVIOUSLY SAW DR RYAN. CONTROLLED 3 YEARS ON THIS REGIMEN. GERD HISTORY OF THORACIC/LUMBAR HNP(COMP CLAIM) NO RECENT ISSUES DIVERTICULITIS KIDNEY STONES HISTORY OF HIGH CHOLESTEROL ANXIETY ETOH ABUSE ALLERGIES PENICILLIN (FOR ALLERGIES USE ONLY): DOESN'T REMEMBER - ALLERGY TETANUS-DIPHTHERIA TOXOIDS TD: ARM SWELLED (GAVE A PILL BEFORE AND SHOT WAS OK) - ALLERGY TETRACYCLINE HCL: STATES IMMUNITY SURGICAL HISTORY EYE SURGERY CHILD T&A CHILD APPENDECTOMY 2002 LEFT KNEE TORN MENISCUS 06/2009 EGD/COLO DR GONSALVES. 2009 ALL UPPER TEETH EXTRACTED 2014 EDG/COLONOSCOPY - [facility], RECOMMENDED REPEAT OF EGD IN 3 YEARS AND COLONOSCOPY IN 5 YEARS 08/2016 FAMILY HISTORY FATHER: 57 YRS, OF LUNG CA, DIAGNOSED WITH CANCER MOTHER: 91 YRS, COMPLICATIONS OF ALZHEIMER, OTHER SIBLINGS: BROTHER (1) - IS S/P SPLENECTOMY AND IS NOT HAVING PROBLEMS AFTER THIS. HE HAS ALSO HAD A PARTIAL COLECTOMY AFTER DIVERTICULAR FLARES. DAUGHTER(S): DAUGHTERS (3) - H/O ALLERGIES, 1 WITH MIGRAINE HEADACHES PATERNAL GRAND MOTHER: LUNG CANCER MATERNAL GRAND MOTHER: ESOPHAGEAL CANCER PATERNAL AUNT: BRAIN CANCER, STERNUM CANCER 1 BROTHER(S) . [facility]. FATHER - LUNG CANCERMOTHER - ALZHEIMER'S; DUE TO PNEUMONIABROTHER LIVES IN [facility], H\/O SPLENECTOMY\/COLOSTOMY. SOCIAL HISTORY GENERAL: TOBACCO USE ARE YOU A:FORMER SMOKER HOW LONG HAS IT BEEN SINCE YOU LAST SMOKED?> 10 YEARS QUIT IN 1987; HAD ACRUED A 30 PACK YEAR HX BY THEN HIV / HEP-C SCREENING HIV TEST OFFERED TO PATIENT:YES TEST ACCEPTED:NO HEP-C TEST OFFERED TO PATIENT:YES REASON:PATIENT DECLINED TEST ACCEPTED:NO REASON:PATIENT DECLINED HOUSING: LIVES ALONE. EDUCATION 1 SEMESTER COLLEGE. LANGUAGE LANGUAGES SPOKEN:URDU DOMESTIC VIOLENCE NONE. BMI CARE GOAL FOLLOW-UP ABOVE NORMAL BMI FOLLOW-UPDIETARY MANAGEMENT EDUCATION, GUIDANCE, AND COUNSELING RECREATIONAL DRUG USE MARIJUANA EARLY 20'S ONLY, NONE CURRENTLY. EXERCISE: WALKS, DAILY, MOST DAYS. LEARNING BARRIERS / SPECIAL NEEDS CHANGE FROM LAST VISIT?NO BARRIERS TO LEARNING?NO HEARING IMPAIRED?NO VISION IMPAIRED?YES COGNITIVELY IMPAIRED?NO :CORRECTIVE LENSES BIFOCALS READINESS TO LEARN?YES LEARNING PREFERENCES?NO LEARNING CAPABILITIES PRESENT?YES EMOTIONAL BARRIERS?NO SPECIAL DEVICES?NO POST SECONDARY PROFESSIONAL NEEDED?NO PAIN CLINIC PFS, CLERGY, PUBLIC HEALTH REFERRALS HAS THE PATIENT BEEN EDUCATED REGARDING HIS/HER PLAN OF CARE?YES HAS THE PATIENT BEEN EDUCATED REGARDING PAIN, THE RISK FOR PAIN, THE IMPORTANCE OF EFFECTIVE PAIN MANAGEMENT, AND THE PAIN ASSESSMENT PROCESS?YES LATEX QUESTIONNAIRE LATEX ALLERGY : HAVE YOU EVER DEVELOPED ANY TYPE OF REACTION AFTER HANDLING LATEX PRODUCTS SUCH RUBBER GLOVES, CONDOMS, DIAPHRAGMS, BALLOONS, SOCKS, OR UNDERWEAR?NO LATEX ALLERGY : HAVE YOU EVER DEVELOPED ANY TYPE OF REACTION DURING OR AFTER DENTAL APPOINTMENT, VAGINAL/RECTAL EXAMINATION, SURGICAL PROCEDURE, OR ANY OTHER EXPOSURE?NO DATE ASKED : 01/03/2019 LATEX RISK : HAVE YOU EVER HAD ANY DIFFICULTY BREATHING OR HIVES AFTER EATING OR HANDLING ANY FRUITS, OR VEGETABLES; SUCH KIWI, BANANAS, STONE FRUITS, OR CHESTNUTSNO LATEX RISK : DO YOU HAVE A PREVIOUS PERSONAL HISTORY OF MORE THAN NINE SURGERIES, SPINA BIFIDA, OR REPEATED CATHERTIZATIONS? NO LATEX RISK : ARE YOU FREQUENTLY EXPOSED TO LATEX PRODUCTS IN YOUR OCCUPATION?NO CAFFEINE >5/DAY. ADVANCE DIRECTIVE ADVANCE DIRECTIVE DISCUSSED WITH PATIENT:YES HCP - ALETHA (DAUGHTER) BAPTIST NO JAINISM BELIEFS THAT WOULD IMPACT HEALTH CARE. MARITAL STATUS: . ALCOHOL SCREENING DID YOU HAVE A DRINK CONTAINING ALCOHOL IN THE PAST YEAR?YES HOW OFTEN DID YOU HAVE SIX OR MORE DRINKS ON ONE OCCASION IN THE PAST YEAR?MONTHLY (2 POINTS) HOW MANY DRINKS DID YOU HAVE ON A TYPICAL DAY WHEN YOU WERE DRINKING IN THE PAST YEAR?5 OR 6 (2 POINTS) HOW OFTEN DID YOU HAVE A DRINK CONTAINING ALCOHOL IN THE PAST YEAR?TWO TO THREE TIMES PER WEEK (3 POINTS) POINTS7 INTERPRETATIONPOSITIVE OCCUPATION: [employer]; RETIRED FROM [employer]/ [employer]. SEXUAL HX HAD SEX IN THE LAST 12 MONTHS (VAGINAL, ORAL, OR ANAL)?NO HAVE YOU EVER HAD AN STD?YES HERPES?YES WANTS TO DONATE BODY TO SCIENCE. HE IS AN ALCOHOLIC IN [employer], ATTENDING AA MEETINGS.REVIEWED WITH PATIENT 12/09/18 1410 JSREVIEWED WITH PT 01/27/19 1400 BV. HOSPITALIZATION/MAJOR DIAGNOSTIC PROCEDURE SURGERY RELATED REVIEW OF SYSTEMS REVIEWED BY: PROVIDER: CHIN VIVAR MD . CONSTITUTIONAL: ANY CHANGE IN YOUR MEDICAL CONDITION? NO . CHILLS NO . FEVER NO . INFECTION: DO YOU HAVE NEW INFECTIONS? NO . DO YOU HAVE HISTORY OF MRSA? NO . MUSCULOSKELETAL: ANY NEW PATTERNS OF PAIN OR NUMBNESS? NO . GASTROENTEROLOGY: ANY NEW CHANGE IN BOWEL CONTROL? NO . GENITOURINARY: ANY NEW CHANGE IN BLADDER CONTROL? NO . IS THERE A CHANCE YOU COULD BE ? NO . HEMATOLOGY/LYMPH: DO YOU TAKE ANY BLOOD THINNERS? (FOR EXAMPLE- COUMADIN, PLAVIX, AGGRENOX, PLATEL, PRADAXA, OR XARELTO) NO . WHEN WAS YOUR LAST DOSE? DATE: TIME: . NEUROLOGY: HAVE YOU FALLEN IN THE PAST 12 MONTHS? NO . ANY NEW EXTREMITY NUMBNESS OR WEAKNESS? NO . CARDIOLOGY: DO YOU HAVE A PACEMAKER OR DEFIBRILLATOR? NO . RESPIRATORY: HAVE YOU BEEN SICK IN THE PAST WEEK? NO . FEVER NO . FLU LIKE SYMPTOMS? NO . COUGH NO . INTEGUMENTARY: DO YOU HAVE ANY RASHES OR OPEN SORES? NO . ALLERGIC/IMMUNO: ARE YOU ALLERGIC TO IV DYE? NO . ANY NEW ALLERGIES? NO . PSYCHIATRIC: DO YOU HAVE THOUGHTS OF HURTING YOURSELF OR SOMEONE ELSE? NO . ARE YOU ABUSED, NEGLECTED, OR IN AN UNSAFE ENVIRONMENT? NO . ENDOCRINOLOGY: ARE YOU DIABETIC? NO . OTHER: DO YOU NEED ANY PRESCRIPTIONS? NO . IF YES, PLEASE LIST: ____ . ANY NEW PROBLEMS WITH YOUR MEDICATIONS? NO . WHEN DID YOU LAST EAT? ____ . WHEN DID YOU LAST DRINK? ____ . WHAT DID YOU LAST DRINK? ____ . NAME OF PERSON DRIVING YOU HOME? ____ . DO YOU HAVE ANY OTHER QUESTIONS OR CONCERNS NO . VITAL SIGNS WT 350.4 LBS, HT 69 IN, BMI 51.74 INDEX, BP 150/76 MM HG, HR 64 /MIN, RR 20 /MIN, TEMP 98.0 F, OXYGEN SAT % 95%, NA INITIALS SC 13:50, REVIEWED BY: BV. EXAMINATION GENERAL EXAMINATION: PATIENT IS ALERT O X 3 AND COOPERATIVE. TENDERNESS OVER THE RIGHT CHEST WALL. ASSESSMENTS RIGHT-SIDED CHEST WALL PAIN - R07.89 (PRIMARY) MYALGIA, OTHER SITE - M79.18 TREATMENT RIGHT-SIDED CHEST WALL PAIN CLINICAL NOTES: WE DISCUSSED SEVERAL ISSUES WITH MR. DIANE' PAIN MANAGEMENT CASE. THE PATIENT HAD A RIGHT THORACIC TRIGGER POINT INJECTION PERFORMED ON 01/03/2019 THAT OFFERED A FEW DAYS OF RELIEF. I AM REQUESTING FOR A RIGHT CHEST WALL WITH MARKERS MRI TO BE PERFORMED ON THE PATIENT TO FIND THE NATURE OF WHAT IS CAUSING THE PATIENT'S PAIN TO SEE IF IT IS DUE TO TRIGGER POINTS OR SOMETHING ELSE. I AM ALSO REFERRING THE PATIENT TO [facility] IN [place] TO CONSIDER CRYOABLATION. I WILL START THE PATIENT ON FLECTOR PATCH TO TRY FOR THE NEXT COUPLE WEEKS DUE TO ACUTE, EXCESSIVE PAIN. I WILL ALSO START THE PATIENT ON GABAPENTIN 100 MG TO HELP WITH PAIN AND SLEEP. I PROVIDED A SCHEDULE FOR THE PATIENT TO FOLLOW TO SLOWLY REACH UP TO 3 TABLETS PER DAY IN ORDER TO AVOID ADVERSE SIDE EFFECTS. THE PATIENT WILL FOLLOW UP IN SEVERAL WEEKS TO REVIEW THE MRI RESULTS. INSTRUCTIONS WERE GIVEN, QUESTIONS WERE ANSWERED, PATIENT REPORTS UNDERSTANDING AND AGREES WITH THE PLAN. I, TREV GARSIA, DOCUMENTED THE ABOVE INFORMATION ACTING A SCRIBE FOR DR. VIVAR. I HAVE REVIEWED THE ABOVE DOCUMENT, WRITTEN BY TREV LEE AND I VERIFY THAT IT IS ACCURATE. . OTHERS START FLECTOR PATCH, 1.3 %, 1 PATCH TO SKIN, TRANSDERMAL, TWICE A DAY, 30 DAY(S), 60, REFILLS 0 START GABAPENTIN CAPSULE, 100 MG, 1 CAPSULE, ORALLY, THREE TIMES DAILY, 30 DAY(S), 90, REFILLS 1 PREVENTIVE MEDICINE PAIN CLINIC TEACHING: MEDICATIONS FLECTOR PATCH AND CHRISTIANNE HANDOUTS PRINTED, REVIEWED AND GIVEN TO PT. EM. PROCEDURE CODES FA211 ESTABILISHED PATIENT [facility] FACILITY CHARGE G8427 CURRENT MEDS W/DOSAGES DOCUMENTED G8730 PAIN ASSESS POS TOOL F/U PLAN DOC DISPOSITION & COMMUNICATION FOLLOW UP 3-4 WEEKS (REASON: TO GO OVER MRI RESULTS) ELECTRONICALLY SIGNED BY CHIN VIVAR MD, MD ON 02/04/2019 AT 07:06 PM EDT DISCLAIMER : THIS IS A VISIT SUMMARY EXTRACTED FROM THE [employer] CHART. IT IS NOT A COPY OF THE [employer] PROGRESS NOTE. MTDD
== END ==
LOC: M PAIN 13:45
PROVIDERS: ATTEND Anesthesiology
DX: R07.89 Other chest pain (principal); M79.18 Myalgia, other site; G47.33 Obstructive sleep apnea (adult) (pediatric); I10 Essential (primary) hypertension; Z86.59 Personal history of other mental and behavioral disorders; K21.9 Gastro-esophageal reflux disease without esophagitis; Z87.891 Personal history of nicotine dependence; Z88.0 Allergy status to penicillin; Z88.1 Allergy status to other antibiotic agents; Z88.7 Allergy status to serum and vaccine; E66.01 Morbid (severe) obesity due to excess calories; Z68.43 Body mass index [BMI] 50.0-59.9, adult; Z79.899 Other long term (current) drug therapy

== ENCOUNTER → 2019-01-31 | Outpatient (CLI) | payer MEDICARE, BC, OTHER ==
--- NOTE | 2019-01-31 10:52 | REP ---
MRI CHEST WITHOUT CONTRAST: Multiple sequences obtained in the axial, coronal and sagittal planes, centered on an area of pain and tenderness. The patient placed a marker on the skin at that location. In the superficial soft tissues of the right chest wall at the site of the reported pain and tenderness, there is mild ill-defined edema in the deeper subcutaneous fat adjacent to the latissimus dorsi. This is nonspecific. No fluid collection or mass is seen. Other soft tissue structures demonstrate no abnormal signal. The visualized right upper abdominal structures are grossly unremarkable. There is no definite abnormal signal in the visualized ribs. IMPRESSION: Mild nonspecific edema in the deep superficial soft tissues at the site of the patient's pain and tenderness, adjacent to the latissimus dorsi muscle. This is nonspecific. Otherwise, no fluid collection or mass seen. No other abnormalities seen. Electronically Signed by Raleigh Rahman MD 01/31/2019 04:30 P
== END ==
LOC: M RAD 08:57
PROVIDERS: ATTEND Anesthesiology
DX: R22.2 Localized swelling, mass and lump, trunk (principal)

== ENCOUNTER → 2019-02-23 | Outpatient (CLI) | payer MEDICARE, BC, OTHER ==
[2019-02-23 12:02] LABS: HEMATOCRIT 40.1 % (42.0-52.0); HEMOGLOBIN 13.1 g/dl (13.5-17.5); MEAN CORPUSCULAR HGB CONC 32.7 g/dl (32.0-36.5); MEAN CORPUSCULAR VOLUME 91.8 fl (80.0-96.0); PLATELET COUNT, AUTOMATED 194 10^3/uL (150-450); RED BLOOD COUNT 4.37 10^6/uL (4.30-6.10); WHITE BLOOD COUNT 6.1 10^3/uL (4.0-10.0)
[2019-02-23 12:13] LABS: ALBUMIN 3.4 GM/DL (3.2-5.2); ALT/SGPT 18 U/L (12-78); BILIRUBIN,DIRECT < 0.1 MG/DL (0.0-0.2); BILIRUBIN,TOTAL 0.4 MG/DL (0.2-1.0); BLOOD UREA NITROGEN 15 MG/DL (7-18); CALCIUM LEVEL 8.5 MG/DL (8.8-10.2); CARBON DIOXIDE LEVEL 29 MEQ/L (21-32); CHLORIDE LEVEL 106 MEQ/L (98-107); CREATININE FOR GFR 0.95 MG/DL (0.70-1.30); GLOMERULAR FILTRATION RATE > 60.0 (>49); GLUCOSE, FASTING 98 MG/DL (70-100); SODIUM LEVEL 141 MEQ/L (136-145); TOTAL PROTEIN 6.5 GM/DL (6.4-8.2)
== END ==
LOC: M WUC 08:59
PROVIDERS: ATTEND Obstetrics & Gynecology
DX: Z51.81 Encounter for therapeutic drug level monitoring (principal); Z79.899 Other long term (current) drug therapy; I10 Essential (primary) hypertension

== ENCOUNTER → 2019-04-06 | Outpatient (CLI) | payer MEDICARE, BC, OTHER ==
--- NOTE | 2019-04-06 15:55 | REP ---
Chest x-ray right rib series: Six views including PA chest. History: Pain. Comparison chest x-ray May 14, 2017. Findings: PA chest radiograph is normal. There is no evidence of pneumothorax or hydrothorax. Mediastinum is not widened. There are degenerative changes in the thoracic spine. Thoracic aorta is slightly calcific. Heart size is normal. The lung banks are clear. Multiple views of the right ribcage show no evidence of right rib fracture or bony destructive lesion. 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 Otherwise negative right rib radiographic series. Electronically Signed by Damian Maldonado MD 04/06/2019 04:51 P
== END ==
LOC: M WUC 13:26
PROVIDERS: ATTEND Physical Medicine & Rehabilitation
DX: M51.34 Other intervertebral disc degeneration, thoracic region (principal)